=== PATIENT | female | born 1955 | race Hispanic/Latino ===

== ENCOUNTER 2016-05-28 09:08 | Emergency (ER) | payer OTHER ==
[~2016-05-28] VITALS: Ht 165.1 cm; Wt 90.5 kg
[~2016-05-28 09:08] MED LIST: BACTERICIN30 GM TP; CIPRO500 MG PO; FLEXERIL10 MG PO; GRALISE300 MG PO; INDOCIN50 MG PO; KEFLEX500 MG PO; KRISTALOSE20 GM PO; MIRALAX255 GM PO; MOTRIN600 MG PO; MOTRIN800 MG PO; NEURONTIN300 MG PO; NORCO 5/3251 TABLET PO; NOVOLOG (UNITS1 UNIT IV; NOVOLOG MI100 UNIT/M SC; PAXIL30 MG PO; PERCOCET 5/31 TABLET PO; SEROQUEL100 MG PO; SEROQUEL12.5 MG PO; SEROQUEL200 MG PO; SILVADENE20 GM TP; ZOFRAN ODT4 MG PO; ZOFRAN ODT8 MG PO; ZOFRAN4 MG PO; no home meds
[2016-05-28 10:02] LABS: HEMATOCRIT 35.7 % (36.0-46.0); MCH 27.4 PG (29.0-34.0); MCHC 32.2 G/DL (30.0-36.0); MCV 85.2 FL (83-99); MEAN PLAT.VOLUME 10.5 uM^3 (9.5-12.4); PLATELET COUNT 203 K/uL (156-360); RBC DIS.WIDTH-CV 13.1 % (11.8-14.6); RBC DIS.WIDTH-SD 40.6 % (39-53); RED BLOOD COUNT 4.19 M/uL (3.80-5.20); WHITE BLOOD COUNT 7.5 K/uL (4.1-10.2)
[2016-05-28 10:12] LABS: CHLORIDE 105 mEq/L (99-109)
[2016-05-28 10:13] LABS: POTASSIUM 4.7 mEq/L (3.7-5.4); SODIUM 139 mEq/L (136-147)
[2016-05-28 10:14] LABS: GLUCOSE 316 mg/dL (70-99)
[2016-05-28 10:16] LABS: ANION GAP 13 MEQ/L (2-14)
[2016-05-28 10:18] LABS: GFR ESTIMATE (CALCULATED) 54 mL/min/
[2016-05-28 10:19] LABS: UREA NITROGEN (BUN) 34 mg/dL (9-23)
[2016-05-28 10:23] LABS: TROP-I INTERPRETATION NEGATIVE; TROPONIN-I < 0.01 ng/mL (0.0-0.30)
[2016-05-28 12:29] VITALS: BP 130/78
== END 2016-05-28 12:30 | disposition home or self-care (01) ==
LOC: EME 09:08
PROVIDERS: Emergency Medicine
DX: R07.9 Chest pain, unspecified (principal); Z85.3 Personal history of malignant neoplasm of breast; E11.9 Type 2 diabetes mellitus without complications; Z87.891 Personal history of nicotine dependence
CPT/HCPCS: 71020; 80048; 84484; 85027; 93005; 99281; 99283